=== PATIENT | male | born 1950 | race African-American/Black ===

== ENCOUNTER 2019-04-15 06:54 | Inpatient (IN) | payer MEDICARE, BC ==
[~2019-04-15] VITALS: Ht 180.3 cm; Wt 108.9 kg
[2019-04-15] MEDS ORDERED: METOPROLOL SUCC25 MG ORAL (07:01)
[2019-04-15] MEDS ORDERED: ASPIR-LOW81 MG ORAL (07:01)
[2019-04-15] MEDS ORDERED: ATORVASTATIN CA10 MG ORAL (07:01)
[2019-04-15] MEDS ORDERED: ATORVASTATIN CA20 MG ORAL (07:01)
[2019-04-15] MEDS ORDERED: CLOPIDOGREL75 MG ORAL (07:01)
[2019-04-15] MEDS ORDERED: METFORMIN HCL500 M1 ORAL (07:01)
[2019-04-15 07:03] VITALS: BP 127/72
[2019-04-15 07:42] VITALS: BP 115/66
[2019-04-15 07:53] LABS: BASOPHILS % (AUTO) 0.9 % (0.0-2.0); EOSINOPHILS % (AUTO) 2.6 % (0.0-3.0); HEMATOCRIT 42.7 % (42.0-52.0); HEMOGLOBIN 13.9 G/DL (14.2-18.0); LYMPHOCYTES % (AUTO) 25.4 % (20.0-45.0); MEAN CORPUSCULAR VOLUME 85 FL (80-99); MONOCYTES % (AUTO) 8.1 % (1.0-10.0); PLATELET COUNT 255 K/UL (150-450); RED BLOOD COUNT 5.05 M/UL (4.70-6.10); RED CELL DISTRIBUTION WIDTH 14.6 % (11.6-14.8); WHITE BLOOD COUNT 7.3 K/UL (4.8-10.8)
--- NOTE | 2019-04-15 07:56 | Emergency Room Report ---
History of Present Illness General Chief Complaint: Chest Pain Source: Patient, EMS Present Illness HPI The patient states that this morning an hour prior to arrival, the patient states that he was watching television when he developed chest pressure and pain. He states the initial pain was approximately 3/10. He states that he walked around and went to feed the dog and the symptoms continued. He denies recent illness. He denies cough or congestion. He denies fever or chills. He denies abdominal pain. No other complaints. Allergies: Coded Allergies: No Known Allergies (Unverified , 04/15/19) Patient History Past Medical History: see triage record, DM, HTN, [place], CAD Past Surgical History: other - Hx of craniectomy secondary to Aneurysm rupture , Stentx2 Social History: Reports: drug use - THC; Denies: smoking, alcohol use Reviewed Nursing Documentation: PMH: Agreed; PSxH: Agreed Nursing Documentation-PMH Hx Cardiac Problems: Yes - [place] x2 Hx Hypertension: Yes Hx Diabetes: Yes Hx Cerebrovascular Accident: Yes - anyeurism Review of Systems All Other Systems: negative except mentioned in HPI Physical Exam Vital Signs Date Time Temp Pulse Resp B/P (MAP) Pulse Ox O2 Delivery O2 Flow Rate FiO2 04/15/19 06:54 76 18 127/72 (90) 98 Room Air Sp02 EP Interpretation: reviewed, normal General Appearance: no apparent distress, alert, GCS 15, non-toxic Head: normocephalic, atraumatic Eyes: bilateral eye normal inspection, bilateral eye PERRL ENT: hearing grossly normal, normal pharynx, no angioedema, normal voice Neck: full range of motion, supple/symm/no masses Respiratory: chest non-tender, lungs clear, normal breath sounds, no respiratory distress, no retraction, no accessory muscle use, speaking full sentences Cardiovascular #1: regular rate, rhythm, no edema Gastrointestinal: normal bowel sounds, non tender, soft, non-distended, no guarding, no rebound Rectal: deferred Musculoskeletal: back normal, normal range of motion, gait/station normal, non- tender Neurologic: alert, motor strength/tone normal, oriented x3, sensory intact, responsive, speech normal Psychiatric: judgement/insight normal, memory normal, mood/affect normal, no suicidal/homicidal ideation Skin: no rash, normal color Medical Decision Making Diagnostic Impression: Primary Impression: Chest pain EKG Diagnostic Results Rate: normal Rhythm: NSR ST Segments: no acute changes Other Impression RBBB Rhythm Strip Diag. Results EP Interpretation: yes Rate: 70's Rhythm: NSR, no PVC's, no ectopy Last Vital Signs Date Time Temp Pulse Resp B/P (MAP) Pulse Ox O2 Delivery O2 Flow Rate FiO2 04/15/19 07:03 7 18 127/72 98 Room Air Referrals: NOT CHOSEN IPA/,REFERRING (PCP) Roselyn Talbot DO Apr 15, 2019 07:56
[2019-04-15 07:58] LABS: BILIRUBIN, URINE NEGATIVE (NEGATIVE); COLOR,URINE PALE YELLOW; GLUCOSE, URINE (UA) NEGATIVE (NEGATIVE); KETONES,URINE NEGATIVE (NEGATIVE); LEUKOCYTE ESTERASE ,URINE NEGATIVE (NEGATIVE); NITRITE,URINE NEGATIVE (NEGATIVE); PH,URINE 6 (4.5-8.0); PROTEIN,URINE NEGATIVE (NEGATIVE); UROBILINOGEN,URINE NORMAL MG/DL (0.0-1.0)
[2019-04-15 07:59] LABS: APPEARANCE,URINE CLEAR
[2019-04-15 07:59] LABS: INR 0.9 (0.9-1.1)
[2019-04-15 08:22] LABS: ANION GAP 12 mmol/L (5-15); BLOOD UREA NITROGEN 19 mg/dL (7-18); CALCIUM 9.3 MG/DL (8.5-10.1); CARBON DIOXIDE 23 MMOL/L (21-32); CHLORIDE 109 MMOL/L (98-107); POTASSIUM 4.1 MMOL/L (3.5-5.1); SODIUM 144 MMOL/L (136-145)
[2019-04-15 08:27] LABS: ALANINE AMINOTRANSFERASE 31 U/L (12-78); ALBUMIN 3.6 G/DL (3.4-5.0); ALKALINE PHOSPHATASE 92 U/L (46-116); ASPARTATE AMINO TRANSFERASE 13 U/L (15-37); BILIRUBIN,TOTAL 0.2 MG/DL (0.2-1.0)
[2019-04-15] MEDS ORDERED: Aspirin EC 81mg tab ORAL SCH (09:00)
--- NOTE | 2019-04-15 09:36 | Diagnostic Imaging Report ---
Indication: Chest pain Technique: One view of the chest Comparison: none Findings: Ventricular peritoneal shunt tubing traverses the right side of the chest. The lungs and pleural spaces are clear Impression: No acute process
[2019-04-15 10:40] VITALS: BP_SYST 134; BP_SYST 137; BP_DIAS 72; BP_DIAS 78
[2019-04-15] MEDS ORDERED: Milk of Magnesia 30ml Ud ORAL PRN (11:00)
[2019-04-15 12:00] VITALS: BP 134/78
[2019-04-15] MEDS: metFORMIN 500mg tab ORAL SCH ×2 (12:05→18:06)
[2019-04-15] MEDS: Metoprolol Succinate XL 25mg tab ORAL SCH (12:05)
--- NOTE | 2019-04-15 13:37 | Cardiology Report ---
APPROVED REPORT EKG Measurement Heart [id number] Normal sinus rhythm Left axis deviation Right bundle branch block Minimal voltage criteria for LVH, may be normal variant Abnormal ECG
--- NOTE | 2019-04-15 14:19 | Cardiac Electrophysiology PN ---
Subjective Subjective HTN, DM< hyperlipidemia, CAD with prior stents, RBBB and LAFB Will R/O MT and repeat ECG and echo. May need Cardiac cath [id number] Objective Last 24 Hour Vital Signs Date Time Temp Pulse Resp B/P (MAP) Pulse Ox O2 Delivery O2 Flow Rate FiO2 04/15/19 12:05 64 134/78 04/15/19 12:00 98.1 64 18 134/78 (96) 98 04/15/19 12:00 61 04/15/19 10:53 66 04/15/19 10:47 Room Air 04/15/19 10:40 98.3 67 18 137/72 (93) 98 04/15/19 10:30 97.8 78 18 130/86 98 Room Air 04/15/19 07:42 64 15 115/66 100 Room Air 04/15/19 07:03 7 18 127/72 98 Room Air 04/15/19 07:03 76 18 Room Air 04/15/19 06:54 76 18 127/72 (90) 98 Room Air Laboratory Tests Test 04/15/19 07:27 04/15/19 07:30 White Blood Count 7.3 K/UL (4.8-10.8) Red Blood Count 5.05 M/UL (4.70-6.10) Hemoglobin 13.9 G/DL (14.2-18.0) L Hematocrit 42.7 % (42.0-52.0) Mean Corpuscular Volume 85 FL (80-99) Mean Corpuscular Hemoglobin 27.6 PG (27.0-31.0) Mean Corpuscular Hemoglobin Concent 32.7 G/DL (32.0-36.0) Red Cell Distribution Width 14.6 % (11.6-14.8) Platelet Count 255 K/UL (150-450) Mean Platelet Volume 6.1 FL (6.5-10.1) L Neutrophils (%) (Auto) 63.0 % (45.0-75.0) Lymphocytes (%) (Auto) 25.4 % (20.0-45.0) Monocytes (%) (Auto) 8.1 % (1.0-10.0) Eosinophils (%) (Auto) 2.6 % (0.0-3.0) Basophils (%) (Auto) 0.9 % (0.0-2.0) Prothrombin Time 9.7 SEC (9.30-11.50) Prothromb Time International Ratio 0.9 (0.9-1.1) Activated Partial Thromboplast Time 25 SEC (23-33) Sodium Level 144 MMOL/L (136-145) Potassium Level 4.1 MMOL/L (3.5-5.1) Chloride Level 109 MMOL/L (98-107) H Carbon Dioxide Level 23 MMOL/L (21-32) Anion Gap 12 mmol/L (5-15) Blood Urea Nitrogen 19 mg/dL (7-18) H Creatinine 1.0 MG/DL (0.55-1.30) Estimat Glomerular Filtration Rate > 60 mL/min (>60) Glucose Level 162 MG/DL (74-106) H Calcium Level 9.3 MG/DL (8.5-10.1) Total Bilirubin 0.2 MG/DL (0.2-1.0) Aspartate Amino Transf (AST/SGOT) 13 U/L (15-37) L Alanine Aminotransferase (ALT/SGPT) 31 U/L (12-78) Alkaline Phosphatase 92 U/L (46-116) Troponin I 0.017 ng/mL (0.000-0.056) Total Protein 7.3 G/DL (6.4-8.2) Albumin 3.6 G/DL (3.4-5.0) Globulin 3.7 g/dL Albumin/Globulin Ratio 1.0 (1.0-2.7) Urine Color Pale yellow Urine Appearance Clear Urine pH 6 (4.5-8.0) Urine Specific [place] 1.015 (1.005-1.035) Urine Protein Negative (NEGATIVE) Urine Glucose (UA) Negative (NEGATIVE) Urine Ketones Negative (NEGATIVE) Urine Blood 2+ (NEGATIVE) H Urine Nitrite Negative (NEGATIVE) Urine Bilirubin Negative (NEGATIVE) Urine Urobilinogen Normal MG/DL (0.0-1.0) Urine Leukocyte Esterase Negative (NEGATIVE) Urine RBC 2-4 /HPF (0 - 0) H Urine WBC 0-2 /HPF (0 - 0) Urine Squamous Epithelial Cells Occasional /LPF Urine Bacteria Occasional /HPF (NONE) Urine Opiates Screen Negative (NEGATIVE) Urine Barbiturates Screen Negative (NEGATIVE) Phencyclidine (PCP) Screen Negative (NEGATIVE) Urine Amphetamines Screen Negative (NEGATIVE) Urine Benzodiazepines Screen Negative (NEGATIVE) Urine Cocaine Screen Negative (NEGATIVE) Urine Marijuana (THC) Screen Positive (NEGATIVE) H Christian Whitehead MD Apr 15, 2019 14:19
--- NOTE | 2019-04-15 15:03 | History & Physical ---
History and Physical History & Physicial HP dictated # [id number] Ray Rosen MD Apr 15, 2019 15:03
[2019-04-15 16:00] VITALS: BP 128/77
--- NOTE | 2019-04-15 18:01 | Consultation ---
DATE OF CONSULTATION: 04/15/2019 CARDIOLOGY CONSULTATION CONSULTING PHYSICIAN: Christian Whitehead M.D. REFERRING PHYSICIAN: Ray Rosen M.D. REASON FOR CONSULTATION: Chest pain. HISTORY OF PRESENT ILLNESS: The patient is a very pleasant 68-year-old gentleman with history of hypertension, diabetes, and history of prior [place] with stent placement more than 10 years ago as well as history of craniotomy secondary to aneurysm rupture, who presented to the emergency room complaining of chest pain while he was watching TV. Initial pain was 3/10 and then he walked and went to and symptoms continues. The patient denies any recent cardiac catheterization or stress test. The patient's blood pressure in the ER was 127/72 with a pulse of 70, respirations of 18. His first troponin was negative. Urine toxicology screen was positive only for marijuana. REVIEW OF SYSTEMS: Review of systems was negative other than what was mentioned in history of present illness PAST MEDICAL HISTORY: As mentioned above. FAMILY HISTORY: Noncontributory. SOCIAL HISTORY: Denies smoking or using any drugs except for marijuana. PHYSICAL EXAMINATION: VITAL SIGNS: Blood pressure 134/78, pulse 64, respirations 18, and temperature 98.1. HEENT: Head and neck showed no JVD. LUNGS: Clear. CARDIOVASCULAR: Regular S1 and S2 with no gallop or murmur. ABDOMEN: Soft. EXTREMITIES: No pitting edema. LABORATORY AND DIAGNOSTIC DATA: EKG showed right bundle-branch block and left anterior fascicular block. His labs show sodium 144, potassium 4.1, BUN of 19, creatinine 1, and glucose of 162. Troponin is negative. White count is 7.2, hemoglobin 13.9, hematocrit of 42, and platelet count 255. ASSESSMENT AND PLAN: 1. Chest pain. The patient with history of known coronary artery disease and prior stent placement. We completely rule out myocardial infarction protocol, get an echocardiogram for further evaluation. His EKG shows bifascicular block and repolarization abnormality. In the meantime, continue aspirin, Plavix, Lipitor, Toprol 25 mg daily. In view of his symptoms suggestive of unstable angina, the patient may need cardiac catheterization if symptoms recur while at rest. 2. Hypertension on metoprolol 25 mg daily. 3. Hyperlipidemia on Lipitor. Thank you very much for allowing me to participate in the care of this patient. Please do not hesitate to contact me for any questions regarding my evaluation. Christian Whitehead M.D. DR: Joslyn JOB#: [id number] CC:
--- NOTE | 2019-04-15 19:45 | History and Physical Report ---
DATE OF ADMISSION: 04/15/2019 CHIEF COMPLAINT: Chest pain. HISTORY OF PRESENT ILLNESS: This is a 68-year-old male with history of coronary artery disease. He was in his usual state of health until early this morning. Around 4 o'clock, he woke up and was watching some TV and then he developed chest pressure, which was gradually increased. The pressure initially was 6/10 and then it lasted about 20 minutes. The patient was brought in by paramedics and was admitted. The patient did not have any radiation of the pain and he was not short of breath. PAST MEDICAL HISTORY: The patient has history of STEMI and underwent cardiac catheterization at [facility] in 2013. The patient has history of ischemic cardiomyopathy, sinus bradycardia, hyperlipidemia, hypertension, reported history of colon cancer from [facility], cerebral aneurysm, and gastroesophageal reflux disease. MEDICATIONS: Reviewed in the EMR. SOCIAL HISTORY: Remote history of smoking. No history of alcohol abuse. The patient is retired, lives with family. REVIEW OF SYSTEMS: Noncontributory. PHYSICAL EXAMINATION: GENERAL: The patient is a moderately obese male, in no acute distress. VITAL SIGNS: Blood pressure is 127/72, pulse 76, respirations 18, and temperature 98. HEENT: [place] conjunctivae. Anicteric sclerae. NECK: Supple. LUNGS: Clear to auscultation. HEART: S1, S2 without murmurs or rubs. ABDOMEN: Soft and nontender. EXTREMITIES: No cyanosis or edema. LABORATORY FINDINGS: The CBC shows a WBC of 7300, hematocrit 42.7, hemoglobin 13.9, and platelets 255,000. Chemistry panel shows sodium 144, potassium 4.1, chloride 109, CO2 23, BUN 19, and creatinine 1.0. Troponin 0.017. Albumin is 3.6. UA was negative with no protein. Tox screen was negative except marijuana positive. ASSESSMENT: This is a 68-year-old male with history of coronary artery disease admitted now with atypical chest pain, has hypertension as well as hyperlipidemia. PLAN: The patient will be in telemetry. He will be ruled out for myocardial infarction by troponins. He will have an echocardiogram. Case was discussed with Dr. Whitehead, who saw the patient in cardiology consultation. He is planning to do a stress test later on. The patient's medications will be adjusted. Ray Rosen M.D. DR: AMADEO JOB#: [id number] CC:
[2019-04-15 20:00] VITALS: BP 132/73
[2019-04-15] MEDS: Atorvastatin 20mg tab ORAL SCH (20:42)
[2019-04-16] VITALS: BP 124/78
[2019-04-16 04:00] VITALS: BP 131/87
[2019-04-16 04:08] LABS: CHOLESTEROL 168 MG/DL (< 200); HDL CHOLESTEROL 33 MG/DL (40-60); TRIGLYCERIDES 139 MG/DL (30-150)
[2019-04-16 08:00] VITALS: BP 131/87
[2019-04-16] MEDS: Aspirin EC 81mg tab ORAL SCH (09:41)
[2019-04-16] MEDS: metFORMIN 500mg tab ORAL SCH ×2 (09:41→17:15)
[2019-04-16] MEDS: Metoprolol Succinate XL 25mg tab ORAL SCH (09:42)
[2019-04-16 12:00] VITALS: BP 125/78
[2019-04-16 15:51] VITALS: BP 140/85
--- NOTE | 2019-04-16 17:24 | Cardiac Electrophysiology PN ---
Assessment/Plan Assessment/Plan 1. Chest pain in a patient with history of known coronary artery disease and prior stent placement. Ruled out for myocardial infarction Echocardiogram NL EF. His EKG shows bifascicular block and repolarization abnormality. In the meantime, continue aspirin, Plavix, Lipitor, Toprol 25 mg daily. Schedule for stress test. 2. Hypertension on metoprolol 25 mg daily. 3. Hyperlipidemia on Lipitor. 4. NIDDM on Metformin CHAU RN and Dr Rosen Subjective Subjective No CP or SOB. Objective Last 24 Hour Vital Signs Date Time Temp Pulse Resp B/P (MAP) Pulse Ox O2 Delivery O2 Flow Rate FiO2 04/16/19 15:51 98.1 74 16 140/85 (103) 95 04/16/19 12:00 64 04/16/19 12:00 97.2 65 16 125/78 (94) 96 04/16/19 09:42 75 131/87 04/16/19 09:00 Room Air 04/16/19 08:00 98.4 75 16 131/87 (102) 95 04/16/19 08:00 78 04/16/19 04:00 63 04/16/19 04:00 98.1 63 16 131/87 (102) 96 04/16/19 00:00 98.1 63 16 124/78 (93) 95 04/15/19 21:24 Room Air 04/15/19 20:00 98.2 68 16 132/73 (92) 97 04/15/19 20:00 68 Intake and Output 04/15/19 04/16/19 19:00 07:00 Intake Total 280 ml 360 ml Output Total 200 ml Balance 80 ml 360 ml Intake Oral 280 ml 360 ml Output Urine Total 200 ml # Voids 9 Laboratory Tests Test 04/15/19 17:50 04/16/19 03:07 Troponin I 0.024 ng/mL (0.000-0.056) 0.004 ng/mL (0.000-0.056) Hemoglobin A1c 7.0 % (4.3-6.0) H Triglycerides Level 139 MG/DL (30-150) Cholesterol Level 168 MG/DL (< 200) LDL Cholesterol 118 mg/dL (<100) H HDL Cholesterol 33 MG/DL (40-60) L Cholesterol/HDL Ratio 5.1 (3.3-4.4) H Thyroid Stimulating Hormone (TSH) 1.696 uiU/mL (0.358-3.740) Objective HEENT: Head and neck showed no JVD. LUNGS: Clear. CARDIOVASCULAR: Regular S1 and S2 with no gallop or murmur. ABDOMEN: Soft. EXTREMITIES: No pitting edema. Christian Whitehead MD Apr 16, 2019 17:24
--- NOTE | 2019-04-16 17:26 | General Progress Note ---
Assessment/Plan Problem List: (1) Chest pain ICD Codes: R07.9 - Chest pain, unspecified SNOMED: 22732248 (2) HTN (hypertension) ICD Codes: I10 - Essential (primary) hypertension SNOMED: 60524452 (3) Diabetes ICD Codes: E11.9 - Type 2 diabetes mellitus without complications SNOMED: 18063137 Qualifiers: (4) Hyperlipemia ICD Codes: E78.5 - Hyperlipidemia, unspecified SNOMED: 66213610 Assessment/Plan: cont tele cont statins and ASA discussed with dr Guzman cardiac stress test Subjective Allergies: Coded Allergies: No Known Allergies (Unverified , 04/15/19) Subjective feels ok Objective Last 24 Hour Vital Signs Date Time Temp Pulse Resp B/P (MAP) Pulse Ox O2 Delivery O2 Flow Rate FiO2 04/16/19 15:51 98.1 74 16 140/85 (103) 95 04/16/19 12:00 64 04/16/19 12:00 97.2 65 16 125/78 (94) 96 04/16/19 09:42 75 131/87 04/16/19 09:00 Room Air 04/16/19 08:00 98.4 75 16 131/87 (102) 95 04/16/19 08:00 78 04/16/19 04:00 63 04/16/19 04:00 98.1 63 16 131/87 (102) 96 04/16/19 00:00 98.1 63 16 124/78 (93) 95 04/15/19 21:24 Room Air 04/15/19 20:00 98.2 68 16 132/73 (92) 97 04/15/19 20:00 68 Intake and Output 04/15/19 04/16/19 19:00 07:00 Intake Total 280 ml 360 ml Output Total 200 ml Balance 80 ml 360 ml Intake Oral 280 ml 360 ml Output Urine Total 200 ml # Voids 9 Laboratory Tests 04/15/19 17:50: Troponin I 0.024 04/16/19 03:07: Troponin I 0.004, Hemoglobin A1c 7.0H, Triglycerides Level 139, Cholesterol Level 168, LDL Cholesterol 118H, HDL Cholesterol 33L, Cholesterol/HDL Ratio 5.1H , Thyroid Stimulating Hormone (TSH) 1.696 Height (Feet): 5 Height (Inches): 11.00 Weight (Pounds): 240 Cardiovascular: normal rate Respiratory/Chest: lungs clear Edema: no edema noted Generalized Ray Rosen MD Apr 16, 2019 17:26
[2019-04-16] MEDS ORDERED: Lexiscan 0.4mg/5ml syringe IV PRN (17:30)
[2019-04-16 20:00] VITALS: BP 134/72
[2019-04-16] MEDS: Atorvastatin 20mg tab ORAL SCH (20:36)
[2019-04-17] VITALS: BP 124/83
[2019-04-17 04:00] VITALS: BP 128/83
[2019-04-17 08:00] VITALS: BP 145/79
[2019-04-17] MEDS: Aspirin EC 81mg tab ORAL SCH (09:18)
[2019-04-17] MEDS: Metoprolol Succinate XL 25mg tab ORAL SCH (09:19)
[2019-04-17] MEDS: metFORMIN 500mg tab ORAL SCH ×2 (09:19→17:42)
[2019-04-17 12:00] VITALS: BP 122/91
--- NOTE | 2019-04-17 15:55 | Cardiac Electrophysiology PN ---
Assessment/Plan Assessment/Plan 1. Chest pain in a patient with history of known coronary artery disease and prior stent placement. Ruled out for myocardial infarction Echocardiogram NL EF. EKG shows bifascicular block and repolarization abnormality. Continue aspirin, Plavix, Lipitor, Toprol 25 mg daily. Scheduled for stress test tomorrow. 2. Hypertension on metoprolol 25 mg daily. 3. Hyperlipidemia on Lipitor. 4. NIDDM on Metformin DW RN Subjective Subjective No CP or SOB. Stress test on Thursday Objective Last 24 Hour Vital Signs Date Time Temp Pulse Resp B/P (MAP) Pulse Ox O2 Delivery O2 Flow Rate FiO2 04/17/19 12:00 97.5 87 18 122/91 (101) 97 04/17/19 09:19 86 145/79 04/17/19 09:00 Room Air 04/17/19 08:00 97.3 86 18 145/79 (101) 96 04/17/19 08:00 82 04/17/19 04:00 97.8 76 16 128/83 (98) 99 04/17/19 04:00 71 04/17/19 00:00 98.4 73 16 124/83 (97) 98 04/17/19 00:00 78 04/16/19 21:00 Room Air 04/16/19 20:00 97.7 70 16 134/72 (92) 98 04/16/19 20:00 78 04/16/19 16:00 74 Intake and Output 04/16/19 04/17/19 19:00 07:00 Intake Total 720 ml Balance 720 ml Intake Oral 720 ml # Voids 4 Objective HEENT: Head and neck showed no JVD. LUNGS: Clear. CARDIOVASCULAR: Regular S1 and S2 with no gallop or murmur. ABDOMEN: Soft. EXTREMITIES: No pitting edema. Christian Whitehead MD Apr 17, 2019 15:55
[2019-04-17 16:00] VITALS: BP 125/74
--- NOTE | 2019-04-17 17:02 | General Progress Note ---
Assessment/Plan Problem List: (1) Chest pain ICD Codes: R07.9 - Chest pain, unspecified SNOMED: 14404892 (2) HTN (hypertension) ICD Codes: I10 - Essential (primary) hypertension SNOMED: 37562941 (3) Diabetes ICD Codes: E11.9 - Type 2 diabetes mellitus without complications SNOMED: 32156561 Qualifiers: (4) Hyperlipemia ICD Codes: E78.5 - Hyperlipidemia, unspecified SNOMED: 95823411 Assessment/Plan: cont tele cont statins and ASA cardiac stress test Subjective Allergies: Coded Allergies: No Known Allergies (Unverified , 04/15/19) Subjective feels ok Objective Last 24 Hour Vital Signs Date Time Temp Pulse Resp B/P (MAP) Pulse Ox O2 Delivery O2 Flow Rate FiO2 04/17/19 12:00 87 04/17/19 12:00 97.5 87 18 122/91 (101) 97 04/17/19 09:19 86 145/79 04/17/19 09:00 Room Air 04/17/19 08:00 97.3 86 18 145/79 (101) 96 04/17/19 08:00 82 04/17/19 04:00 97.8 76 16 128/83 (98) 99 04/17/19 04:00 71 04/17/19 00:00 98.4 73 16 124/83 (97) 98 04/17/19 00:00 78 04/16/19 21:00 Room Air 04/16/19 20:00 97.7 70 16 134/72 (92) 98 04/16/19 20:00 78 Intake and Output 04/16/19 04/17/19 19:00 07:00 Intake Total 720 ml Balance 720 ml Intake Oral 720 ml # Voids 4 Height (Feet): 5 Height (Inches): 11.00 Weight (Pounds): 240 Cardiovascular: normal rate Respiratory/Chest: lungs clear Edema: no edema noted Ray Landin MD Apr 17, 2019 17:02
[2019-04-17 20:00] VITALS: BP_SYST 104; BP_SYST 112; BP_DIAS 46; BP_DIAS 72
[2019-04-17] MEDS: Atorvastatin 20mg tab ORAL SCH (20:27)
[2019-04-18] VITALS: BP 124/74
[2019-04-18 04:00] VITALS: BP 131/78
[2019-04-18 08:22] VITALS: BP 142/78
[2019-04-18] MEDS ORDERED: Metoprolol Tartrate 12.5mg TAB ORAL SCH (09:00)
[2019-04-18 12:22] VITALS: BP 149/89
--- NOTE | 2019-04-18 12:32 | General Progress Note ---
Assessment/Plan Problem List: (1) Chest pain ICD Codes: R07.9 - Chest pain, unspecified SNOMED: 26727233 (2) HTN (hypertension) ICD Codes: I10 - Essential (primary) hypertension SNOMED: 80242141 (3) Diabetes ICD Codes: E11.9 - Type 2 diabetes mellitus without complications SNOMED: 90962401 Qualifiers: (4) Hyperlipemia ICD Codes: E78.5 - Hyperlipidemia, unspecified SNOMED: 00341416 Assessment/Plan: cont tele cont statins and ASA cardiac stress test Dc today if stress test is negative Subjective Allergies: Coded Allergies: No Known Allergies (Unverified , 04/15/19) Subjective feels ok Objective Last 24 Hour Vital Signs Date Time Temp Pulse Resp B/P (MAP) Pulse Ox O2 Delivery O2 Flow Rate FiO2 04/18/19 12:22 96.7 69 20 149/89 (109) 96 72 04/18/19 12:10 72 04/18/19 10:01 Room Air 04/18/19 09:01 88 04/18/19 08:22 98.6 74 18 142/78 (99) 98 74 04/18/19 04:00 81 04/18/19 04:00 98.2 81 18 131/78 (95) 96 04/18/19 00:00 75 04/18/19 00:00 98.2 75 18 124/74 (91) 97 04/17/19 21:00 Room Air 04/17/19 20:00 98.8 83 18 112/72 (85) 97 04/17/19 20:00 83 04/17/19 16:00 80 04/17/19 16:00 97.7 80 20 125/74 (91) 100 Intake and Output 04/17/19 04/18/19 19:00 07:00 Intake Total 850 ml 480 ml Balance 850 ml 480 ml Intake Oral 850 ml 480 ml # Voids 8 3 Height (Feet): 5 Height (Inches): 11.00 Weight (Pounds): 240 Cardiovascular: normal rate Respiratory/Chest: lungs clear Edema: no edema noted Ray Landin MD Apr 18, 2019 12:32
[2019-04-18] MEDS: Metoprolol Succinate XL 25mg tab ORAL SCH (13:11)
[2019-04-18] MEDS: Aspirin EC 81mg tab ORAL SCH (13:11)
[2019-04-18] MEDS: metFORMIN 500mg tab ORAL SCH (13:11)
--- NOTE | 2019-04-18 14:43 | Diagnostic Imaging Report ---
Indications: Chest pain Technique: Single day single isotope protocol utilized. Initially, resting images obtained using IV administration 11 millicuries 99M technetium Myoview. Subsequently, patient underwent lexiscan stress testing. See cardiology report for details. During Lexiscan infusion, IV administration 32.9 mCi 99 M technetium Myoview. SPECT and planar images obtained. SPECT images gated to 8 phases of the cardiac cycle were also obtained, and reformatted into cine images for evaluation of ejection fraction. Comparison: none Findings: Per cardiology report, patient experienced no symptoms. Per cardiology report, resting EKG demonstrates normal sinus rhythm with right bundle-branch block and left anterior fascicular block, and changes suggestive of old anterolateral infarct. Presence or absence of ST changes during infusion is not described. Imaging demonstrates no fixed nor reversible poststress perfusion defects. Normal left ventricular chamber size. Calculated post stress ejection fraction 74%. Gated images demonstrate no definite wall motion abnormality Impression: Nonischemic clinical response to pharmacologic stress, per cardiology report Nonischemic electrocardiographic response to pharmacologic stress, per cardiology report No imaging findings to suggest ischemia, at level of stress achieved. Calculated post stress ejection fraction greater than 70%
--- NOTE | 2019-04-18 15:32 | Cardiac Electrophysiology PN ---
Assessment/Plan Assessment/Plan 1. Chest pain in a patient with history of known coronary artery disease and prior stent placement. Ruled out for myocardial infarction Echocardiogram NL EF. EKG shows bifascicular block and repolarization abnormality. Continue aspirin, Plavix, Lipitor, Toprol 25 mg daily. Stress test today showed no ischemia. 2. Hypertension on metoprolol 25 mg daily. 3. Hyperlipidemia on Lipitor. 4. NIDDM on Metformin DW RN OK to DC Subjective Subjective No CP or SOB. Stress test today was nonischemic Objective Last 24 Hour Vital Signs Date Time Temp Pulse Resp B/P (MAP) Pulse Ox O2 Delivery O2 Flow Rate FiO2 04/18/19 13:11 72 149/78 04/18/19 12:22 96.7 69 20 149/89 (109) 96 72 04/18/19 12:10 72 04/18/19 10:01 Room Air 04/18/19 09:01 88 04/18/19 08:22 98.6 74 18 142/78 (99) 98 74 04/18/19 04:00 81 04/18/19 04:00 98.2 81 18 131/78 (95) 96 04/18/19 00:00 75 04/18/19 00:00 98.2 75 18 124/74 (91) 97 04/17/19 21:00 Room Air 04/17/19 20:00 98.8 83 18 112/72 (85) 97 04/17/19 20:00 83 04/17/19 16:00 80 04/17/19 16:00 97.7 80 20 125/74 (91) 100 Intake and Output 04/17/19 04/18/19 19:00 07:00 Intake Total 850 ml 480 ml Balance 850 ml 480 ml Intake Oral 850 ml 480 ml # Voids 8 3 Objective HEENT: Head and neck showed no JVD. LUNGS: Clear. CARDIOVASCULAR: Regular S1 and S2 with no gallop or murmur. ABDOMEN: Soft. EXTREMITIES: No pitting edema. Christian Whitehead MD Apr 18, 2019 15:32
[2019-04-18 16:00] VITALS: BP 149/91
--- NOTE | 2019-04-19 07:38 | Discharge Summary ---
Discharge Summary Discharge Summary _ DATE OF ADMISSION: 04/15/2019 DATE OF DISCHARGE: 04/18/2019 DISCHARGED BY: Dr. 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 Initial pain was 3 out of 10 on a scale 1-10. When he walked around to feed his dog , the symptoms continued. He denied cough or congestion. He denied shortness of breath. He denied fever and chills. He denied abdominal pain. Upon evaluation vital signs were stable. Laboratory work-up revealed no leukocytosis, stable hemoglobin and hematocrit. Stable electrolytes and renal parameters. Glucose 162. Troponin negative. EKG revealed right bundle branch block and left anterior fascicular block. . Chest x-ray demonstrated no acute cardiopulmonary pathology. In emergency department patient received aspirin and admitted for further management. CONSULTANTS: exhibition carver Dr. Ferreira [facility] COURSE: Patient admitted to telemetry floor. Serial troponin were negative. Telemetry showed no acute findings. Social Work Assistant followed. Patient was ruled out for acute myocardial infarction. Echocardiogram demonstrated preserved ejection fraction of 50 to 55%, no evidence of wall motion abnormality. Right ventricular systolic pressure of 15. Patient subsequently undergone myocardial perfusion scan test, given multiple risk factors, which was nonischemic with calculated post stress ejection fraction greater than 70%. Lipid panel revealed elevated LDL of 118, stable triglycerides and total cholesterol. Low HDL of 33 . Patient was counseled on low-fat low-cholesterol cardiac diet. TSH within normal limits. Patient was continued on dual antiplatelet therapy with aspirin and Plavix and statin. Patient was on beta-lindsey. Blood pressure was stable with beta-lindsey. Blood sugar was managed with metformin. Pain management was addressed as needed . Chest pain resolved. Patient was stable for discharge home . Outpatient follow-up with a primary care provider within 1 week. FINAL DIAGNOSES Chest pain in patient with history of coronary artery disease History of coronary artery disease , status post NH x2 and stent placement Hypertension Hyperlipidemia [id number] diabetes mellitus DISCHARGE MEDICATIONS: See Medication Reconciliation list. DISCHARGE INSTRUCTIONS: Patient was discharged home. Follow-up with a primary care provider in 1 week. I have been assigned to dictate discharge summary for this account. I was not involved in the patient's management. Lily Mckeon NP Apr 19, 2019 07:38
== END 2019-04-18 18:00 | disposition home or self-care (01) | DRG 313 ==
LOC: EDBD 06:54 → EMR 07:20 → 2E 09:05 → EDBEDREQ 09:15 → 2E 04-16 21:30
DX: R07.9 Chest pain, unspecified (principal); I45.2 Bifascicular block; I10 Essential (primary) hypertension; E78.5 Hyperlipidemia, unspecified; E11.9 Type 2 diabetes mellitus without complications; K21.9 Gastro-esophageal reflux disease without esophagitis; I25.10 Atherosclerotic heart disease of native coronary artery without angina pectoris; Z95.5 Presence of coronary angioplasty implant and graft; Z79.02 Long term (current) use of antithrombotics/antiplatelets; Z79.82 Long term (current) use of aspirin; I25.2 Old myocardial infarction; Z85.038 Personal history of other malignant neoplasm of large intestine; Z79.84 Long term (current) use of oral hypoglycemic drugs
CPT/HCPCS: 36415; 71045; 78452; 80053; 80061; 80307; 81003; 83036; 84443; 84484; 85025; 85610; 85730; 93005; 93017; 93306; 99285; J2785